=== PATIENT | female | born 1990 | race Hispanic/Latino ===

== ENCOUNTER 2016-05-24 22:07 | Emergency (ER) | payer OTHER ==
[2016-05-24] MEDS ORDERED: METOCLOPRAMIDE INJ 10MG/2ML VIAL (J2765) As Ordered ONE (23:37)
[2016-05-24] MEDS ORDERED: ACETAMINOPHEN 325 MG TAB As Ordered ONE (23:37)
[2016-05-24 23:56] LABS: BASO # 0.1 K/mm3 (0.0-0.2); BASO % 0.5 % (0.0-1.0); EOS # 0.1 K/mm3 (0.0-0.50); EOS % 0.7 % (0.0-3.0); LARGE UNSTAINED CELL # 0.1 K/mm3 (0.0-0.4); LARGE UNSTAINED CELL % 0.9 % (0.0-4.0); LYMPH # 1.6 K/mm3 (1.5-6.5); LYMPH % 9.2 % (24.0-44.0); MEAN CORPUSCULAR HGB CONC 34.5 g/dl (32.0-36.5); MONO # 0.6 K/mm3 (0.0-0.8); MONO % 3.9 % (0.0-5.0); NEUTROPHILS # 13.4 K/mm3 (1.8-7.7); NEUTROPHILS % 84.8 % (36.0-66.0); PLATELET COUNT, AUTOMATED 288 k/mm3 (150-450); RED CELL DISTRIBUTION WIDTH 13.7 % (11.5-14.5); WHITE BLOOD COUNT 15.8 K/mm3 (4.0-10.0)
[2016-05-25 00:13] LABS: ANION GAP 10 MEQ/L (8-16); BLOOD UREA NITROGEN 8 MG/DL (7-18); CALCIUM LEVEL 8.9 MG/DL (8.5-10.1); CARBON DIOXIDE LEVEL 25 MEQ/L (21-32); CHLORIDE LEVEL 106 MEQ/L (98-107); CREATININE FOR GFR 0.45 MG/DL (0.55-1.02); GLOMERULAR FILTRATION RATE > 60.0 (>60); GLUCOSE, FASTING 86 MG/DL (70-105); POTASSIUM SERUM 3.9 MEQ/L (3.5-5.1); SODIUM LEVEL 141 MEQ/L (136-145)
--- NOTE | 2016-05-25 00:20 | REPUSA ---
CLINICAL HISTORY: determination. TECHNIQUE: Transabdominal ultrasound of the pelvis was performed. FINDINGS: Single, live intrauterine gestation. The estimated gestation age is 9 weeks and 3 days based on a pole measurement of 2.6 cm. heart rate 180 beats per minute. No subchorionic hemorrhage is identified. No maternal adnexal abnorm ality is seen. IMPRESSION: Single, live intrauterine gestation. No abnormality seen.
--- NOTE | 2016-05-25 00:56 | EDDOCDS ---
Physician Documentation [facility] Name: Tawana Carbajal Age: 25 yrs Sex: Female : 1990 Arrival Date: 05/24/2016 Time: 22:07 Bed I5 / M5 Private MD: Prakash [facility] [place] Disposition: 05/25/16 00:45 Discharged to Home/Self Care. Impression: Acute upper respiratory infection, unspecified - VIRAL, Vomiting of , unspecified. - Condition is Stable. - Discharge Instructions: Hyperemesis Gravidarum, Upper Respiratory Infection, Adult. - Prescriptions for Reglan 10 mg Oral Tablet - take 1 tablet by ORAL route every 6 hours take 30 minutes before meals and at bedtime; 20 tablet. - Medication Reconciliation, Local Pharmacy Hours form. - Follow up: Norman Swain, OB; When: Tomorrow; Reason: Recheck today's complaints, Continuance of care. - Problem is new. - Symptoms have improved. - Notes: USE TYLENOL AND REGLAN INSTRUCTED, FOLLOW UP WITH YOUR DOCTOR TOMORROW, RETURN TO THE ER IF THE SYMPTOMS WORSEN OR BECOME CONCERNING Historical: - Allergies: Ibuprofen (Upset stomach); PENICILLINS (Vomit); - Home Meds: 1. Vitamin Oral tab 1 tab once daily - PMHx: GERD; bacterial vaginosis; - PSHx: Gall Bladder Removal; - Social history: Smoking status: Patient states was never smoker of tobacco. No barriers to communication noted, The patient speaks fluent Occitan. - Family history: Not pertinent. - : The pt / caregiver states he / she is not on anticoagulants. Home medication list is obtained from the patient. - Exposure Risk Screening:: None identified. 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 (154.94 cm); Pain 6/10; 05/25 00:49 BP 111 / 64 LA Sitting (auto/reg); Pulse 72 MON; Resp 20 S; Temp 99.1(T); Pulse Ox 99% cln on R/A; Pain 07/03; 05/24 22:09 Body Mass Index 30.04 (72.12 kg, 154.94 cm) elp MDM: 05/24 22:58 Financial registration complete. ks16 22:59 [facility] Payment Agreement was scanned into [employer] and attached to record. ks16 23:16 Strep Screen, Nursing ordered. ck7 23:16 Obtain sample by nasopharyngeal swab ordered. ck7 23:16 IV Saline Lock ordered. ck7 23:16 Metoclopramide 10 mg IV at 40 mg/hr once over 15 mins ordered. ck7 23:16 Acetaminophen Tablet 975 mg PO once ordered. ck7 23:16 NS 0.9% 1000 ml IV at bolus once ordered. ck7 23:18 US 1st trimester Ordered. EDMS 23:18 -Influenza A&B Rapid Antigen - Nose Ordered. EDMS 23:18 CBC with Diff Ordered. EDMS 23:18 MED Profile Ordered. EDMS 23:18 UA Ordered. EDMS 05/25 00:06 GATS (NEGATIVE STREP SCREEN) Ordered. EDMS 00:13 CBC with Diff Reviewed. ck7 00:13 UA Reviewed. ck7 00:25 MED Profile Reviewed. ck7 00:34 US 1st trimester Reviewed. ck7 00:38 -Influenza A&B Rapid Antigen - Nose Reviewed. ck7 00:40 Fluid Challenge ordered. ck7 Administered Medications: 05/24 23:45 Drug: Metoclopramide 10 mg [metoclopramide 5 mg/mL injection solution] Route: IV; Rate: jmb 40 mg/hr; Infused Over: 15 mins; Site: right antecubital; 23:45 Drug: Acetaminophen 975 mg [acetaminophen 325 mg tablet (3 tabs)] Route: PO; jmb 23:45 Drug: NS 0.9% 1000 ml [sodium chloride 0.9 % intravenous solution] Route: IV; Rate: jmb bolus; Site: right antecubital; Signatures: Dispatcher [employer] Anh Murphy RN RN rs3 Kwabena Casas, CHRISTOPHER-C RPA-Cck7 Eric Bae RN RN jmb Sorenson, Kimberly, Reg Reg ks16 The chart was reviewed and I authenticate all verbal orders and agree with the evaluation and treatment provided.Attachments: 22:59 [facility] Payment Agreement ks16 MTDD
--- NOTE | 2016-05-25 00:56 | EDDOCDS ---
Nurse's Notes [facility] Name: Tawana Carbajal Age: 25 yrs Sex: Female : 1990 Arrival Date: 05/24/2016 Time: 22:07 Bed I5 / M5 Private MD: JESSA Randall Diagnosis: Acute upper respiratory infection, unspecified-VIRAL;Vomiting of , unspecified Presentation: 05/24 22:11 Presenting complaint: Patient states: throat pain, headache, nasal congestion for a rs3 week. 9 weeks . nausea/vomiting present. Adult Sepsis Screening: The patient does not have new or worsening altered mentation. Patient's respiratory rate is less than 22. Systolic blood pressure is greater than 100. Patient has a qSOFA score of 0- Negative Sepsis Screen. Suicide/Homicide risk assessment- the patient denies having any suicidal and/or homicidal ideations and does not present with any other emotional, behavioral or mental health complaints. 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 Transition of care: patient was not received from another setting of care. 22:11 Acuity: INA Level 4 rs3 22:11 Method Of Arrival: Walkin/Carried/Asstd rs3 Triage Assessment: 22:13 General: Appears in no apparent distress. Pain: Location: forehead, right cheek and rs3 left cheek. HIV screening NA for this visit Offered previously. 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 Vitamin Oral tab 1 tab once daily - PMHx: GERD; bacterial vaginosis; - PSHx: Gall Bladder Removal; - Social history: Smoking status: Patient states was never smoker of tobacco. No barriers to communication noted, The patient speaks fluent Kazakh. - Family history: Not pertinent. - : The pt / caregiver states he / she is not on anticoagulants. Home medication list is obtained from the patient. - Exposure Risk Screening:: None identified. Screenin:44 Screening information is obtained from the patient. Fall risk: No risks identified. jmb Assistance ADL's: requires no assistance with activities of daily living. Abuse/DV Screen: The patient / caregiver reports he/she is: not in a situation that causes fear, pain or injury. Nutritional screening: No deficits noted. home support is adequate. 05/25 00:54 Advance Directives: Currently, there is no health care proxy. There is no active DNR jmb order. There is no living will. There is no Power of Manager Software. Assessment: 05/24 23:44 General: Appears in no apparent distress, Behavior is appropriate for age, cooperative. jmb Pain: Location: face and left cheek and right cheek and forehead Pain currently is 5 out of 10 on a pain scale. Neurological: Level of Consciousness is awake, alert, obeys commands, Oriented to person, place, time, Slip Maker are equal bilaterally Speech is normal, Facial symmetry appears normal, Facial symmetry: tongue is midline. Cardiovascular: Capillary refill < 3 seconds Heart tones present Pulses are all present. Rhythm is regular. Respiratory: No deficits noted. Airway is patent Respiratory effort is even, unlabored, Respiratory pattern is regular, symmetrical, Breath sounds are clear bilaterally. GI: Abdomen is non- distended Bowel sounds present X 4 quads. Abd is soft X 4 quads. Derm: Skin is pink, warm & dry. Musculoskeletal: Range of motion intact in all extremities. 05/25 00:45 General: Appears in no apparent distress, comfortable, Behavior is appropriate for age, jmb cooperative, Patient laying on stretcher, appears comfortable. Patient voices no complaints at this time. . Neurological: Level of Consciousness is awake, alert, obeys commands, Oriented to person, place, time. Respiratory: Airway is patent Respiratory effort is even, unlabored, Respiratory pattern is regular, symmetrical. 00:54 General: Patient instructed on discharge instructions. Patient asked if there were any jmb questions regarding discharge, patient stated no. IV discontinued per hospital policy. Patient signed discharge instructions. Patient discharged in stable condition. . Vital Signs: 05/24 22:09 BP 123 / 73; Pulse 83; Resp 18; Temp 97.6(O); Pulse Ox 99% on R/A; Weight 72.12 kg (M); elp Height 61 in. (154.94 cm); Pain 6/10; 05/25 00:49 BP 111 / 64 LA Sitting (auto/reg); Pulse 72 MON; Resp 20 S; Temp 99.1(T); Pulse Ox 99% cln on R/A; Pain 2/10; 05/24 22:09 Body Mass Index 30.04 (72.12 kg, 154.94 cm) elp Vitals: 05/24 22:09 Log In Time: May 24, 2016 at 22:07. elp 05/25 00:06 Strep Screen is obtained and tested: Negative, a GATSNEG culture is ordered in [facility] and sent. ED Course: 05/24 22:08 Patient visited by Erika Mar PCA. elp 22:08 Patient moved to Waiting elp 22:09 Prakash [facility] [place] is Private Physician. elp 22:10 Patient visited by Erika Mar PCA. elp 22:10 Patient moved to Pre RCE elp 22:12 Triage Initiated rs3 22:14 Patient moved to Triage 1 ms18 22:43 [facility] ck7 22:43 Zain Menendez DO is Attending Physician. ck7 22:43 Patient visited by Kwabena Casas RPA-C. ck7 22:59 [facility] Payment Agreement was scanned into [employer] and attached to record. ks16 23:15 Patient visited by Kwabena Casas RPA-C. ck7 23:21 Patient moved to I5 / M5 kmg1 23:39 UA Sent. cln 23:41 Patient moved to Ultrasound dmg 23:44 The patient / caregiver is instructed regarding the plan of care and ED course. jmb 23:44 Inserted saline lock: 20 gauge in right antecubital area and blood collected. The b patient tolerated the procedure well. Labs drawn. (by ED staff). Sent per order to lab. 23:45 MED Profile Sent. ka4 23:45 CBC with Diff Sent. ka4 23:45 Inserted saline lock: 20 gauge in right antecubital area and blood collected. The ka4 patient tolerated the procedure well. Labs drawn. (by ED staff). Sent per order to lab. Urine collected. Clean catch specimen. Urine specimen sent to lab. 23:46 Patient visited by Aline Chan LPN. ka4 23:46 Patient visited by Eric Bae RN. ita 05/25 00:05 -Influenza A&B Rapid Antigen - Nose Sent. cln 00:06 Patient moved to I5 / dm 00:09 GATS (NEGATIVE STREP SCREEN) Sent. ka4 00:24 Patient visited by Kwabena Casas RPA-C. ck7 00:26 US 1st trimester Returned. EDMS 00:44 [place], OB is Referral Physician. ck7 00:45 Patient visited by Eric Bae RN. jmb 00:50 Patient visited by Julieth Bermeo PCA. cln 00:54 Discontinued lock intact, bleeding controlled, pressure dressing applied, No jmb redness/swelling at site. No procedures done that require assistance. Administered Medications: 05/24 23:45 Drug: Metoclopramide 10 mg [metoclopramide 5 mg/mL injection solution] Route: IV; Rate: jmb 40 mg/hr; Infused Over: 15 mins; Site: right antecubital; 23:45 Drug: Acetaminophen 975 mg [acetaminophen 325 mg tablet (3 tabs)] Route: PO; jmb 23:45 Drug: NS 0.9% 1000 ml [sodium chloride 0.9 % intravenous solution] Route: IV; Rate: jmb bolus; Site: right antecubital; Order Results: Lab Order: -Influenza A&B Rapid Antigen - Nose; SPEC'M 05/24/16 23:48 Test: INFLUENZA A RAPID SCR by ICA; Value: INFLUENZA A RESULTS NEGATIVE; Status: F Test: INFLUENZA A RAPID SCR by ICA; Value: Comments:; Status: F Test: INFLUENZA B RAPID SCR by ICA; Value: INFLUENZA B RESULTS NEGATIVE; Status: F Test Note: ; The Influenza test is a direct rapid immunoassay for the qualitative detection of Influenza viral antigen. Cell culture (Viral Culture) testing should be considered to confirm NEGATIVE results and to assist in detecting other viruses that can provide similar clinical symptoms. Please contact the lab within 24 hours ([phone]) if confirmatory testing is desired. Lab Order: CBC with Diff; SPEC'M 05/24/16 23:43 Test: WHITE BLOOD COUNT; Value: 15.8; Range: 4.0-10.0; Abnormal: Above high normal; Units: K/mm3; Status: F Test: RED BLOOD COUNT; Value: 4.37; Range: 4.00-5.40; Units: M/mm3; Status: F Test: HEMOGLOBIN; Value: 13.1; Range: 12.0-16.0; Units: g/dl; Status: F Test: HEMATOCRIT; Value: 38.0; Range: 36.0-47.0; Units: %; Status: F Test: MEAN CORPUSCULAR VOLUME; Value: 87.0; Range: 80.0-96.0; Units: fl; Status: F Test: MEAN CORPUSCULAR HEMOGLOBIN; Value: 30.0; Range: 27.0-33.0; Units: pg; Status: F Test: MEAN CORPUSCULAR HGB CONC; Value: 34.5; Range: 32.0-36.5; Units: g/dl; Status: F Test: RED CELL DISTRIBUTION WIDTH; Value: 13.7; Range: 11.5-14.5; Units: %; Status: F Test: PLATELET COUNT, AUTOMATED; Value: 288; Range: 150-450; Units: k/mm3; Status: F Test: NEUTROPHILS %; Value: 84.8; Range: 36.0-66.0; Abnormal: Above high normal; Units: %; Status: F Test: LYMPH %; Value: 9.2; Range: 24.0-44.0; Abnormal: Below low normal; Units: %; Status: F Test: MONO %; Value: 3.9; Range: 0.0-5.0; Units: %; Status: F Test: EOS %; Value: 0.7; Range: 0.0-3.0; Units: %; Status: F Test: BASO %; Value: 0.5; Range: 0.0-1.0; Units: %; Status: F Test: LARGE UNSTAINED CELL %; Value: 0.9; Range: 0.0-4.0; Units: %; Status: F Test: NEUTROPHILS #; Value: 13.4; Range: 1.8-7.7; Abnormal: Above high normal; Units: K/mm3; Status: F Test: LYMPH #; Value: 1.6; Range: 1.5-6.5; Units: K/mm3; Status: F Test: MONO #; Value: 0.6; Range: 0.0-0.8; Units: K/mm3; Status: F Test: EOS #; Value: 0.1; Range: 0.0-0.50; Units: K/mm3; Status: F Test: BASO #; Value: 0.1; Range: 0.0-0.2; Units: K/mm3; Status: F Test: LARGE UNSTAINED CELL #; Value: 0.1; Range: 0.0-0.4; Units: K/mm3; Status: F Lab Order: MED Profile; SPEC'M 05/24/16 23:43 Test: GLUCOSE, FASTING; Value: 86; Range: 70-105; Units: MG/DL; Status: F Test: BLOOD UREA NITROGEN; Value: 8; Range: 7-18; Units: MG/DL; Status: F Test: CREATININE FOR GFR; Value: 0.45; Range: 0.55-1.02; Abnormal: Below low normal; Units: MG/DL; Status: F Test: GLOMERULAR FILTRATION RATE; Value: > 60.0; Range: >60; Status: F Test: SODIUM LEVEL; Value: 141; Range: 136-145; Units: MEQ/L; Status: F Test: POTASSIUM SERUM; Value: 3.9; Range: 3.5-5.1; Units: MEQ/L; Status: F Test: CHLORIDE LEVEL; Value: 106; Range: 98-107; Units: MEQ/L; Status: F Test: CARBON DIOXIDE LEVEL; Value: 25; Range: 21-32; Units: MEQ/L; Status: F Test: ANION GAP; Value: 10; Range: 8-16; Units: MEQ/L; Status: F Test: CALCIUM LEVEL; Value: 8.9; Range: 8.5-10.1; Units: MG/DL; Status: F Test Note: ; Units are mL/min/1.73 m2 Chronic Kidney Disease Staging per NKF: Stage I & II GFR >=60 Normal to Mildly Decreased Stage III GFR 30-59 Moderately Decreased Stage IV GFR 15-29 Severely Decreased Stage V GFR <15 Very Little GFR Left ESRD GFR <15 on SLOT FLOORPERSON Lab Order: UA; SPEC'M 05/24/16 23:36 Test: APPEARANCE, URINE; Value: HAZY; Range: CLEAR; Status: F Test: COLOR, URINE; Value: YELLOW; Range: YELLOW; Status: F Test: PH,URINE; Value: 5.0; Range: 5.0-9.0; Units: UNITS; Status: F Test: SPECIFIC GRAVITY URINE AUTO; Value: 1.021; Range: 1.002-1.035; Status: F Test: PROTEIN, URINE AUTO; Value: NEGATIVE; Range: NEGATIVE; Units: mg/dL; Status: F Test: GLUCOSE, URINE (UA) AUTO; Value: NEGATIVE; Range: NEGATIVE; Units: mg/dL; Status: F Test: KETONE, URINE AUTO; Value: NEGATIVE; Range: NEGATIVE; Units: mg/dL; Status: F Test: UROBILINOGEN, URINE AUTO; Value: 0.2; Range: 0.0-2.0; Units: mg/dL; Status: F Test: BILIRUBIN, URINE AUTO; Value: NEGATIVE; Range: NEGATIVE; Status: F Test: NITRITE, URINE AUTO; Value: NEGATIVE; Range: NEGATIVE; Status: F Test: LEUKOCYTE ESTERASE, URINE AUTO; Value: NEGATIVE; Range: NEGATIVE; Status: F Test: BLOOD, URINE BLOOD; Value: 1+; Range: NEGATIVE; Abnormal: Above high normal; Status: F Test: WBC, URINE AUTO; Value: 1; Range: 0-3; Units: /HPF; Status: F Test: RBC, URINE AUTO; Value: 1; Range: 0-3; Units: /HPF; Status: F Test: BACTERIA, URINE AUTO; Value: NEGATIVE; Range: NEGATIVE; Status: F Test: SQUAMOUS EPITHELIAL CELL UR AU; Value: 1; Range: 0-6; Units: /HPF; Status: F Test: MUCUS, URINE; Value: SMALL; Range: NEGATIVE; Status: F Test: HYALINE CAST, URINE AUTO; Value: 0; Range: 0-1; Units: /LPF; Status: F Radiology Order: US 1st trimester Test: US 1st trimester REASON FOR EXAMINATION: R/O DEMISE; ; CLINICAL HISTORY: determination.; TECHNIQUE: Transabdominal ultrasound of the pelvis was performed.; FINDINGS:; Single, live intrauterine gestation.; The estimated gestation age is 9 weeks and 3 days based on a pole measurement of 2.6 cm. ; heart rate 180 beats per minute. No subchorionic hemorrhage is identified. No maternal adnexal abnorm; ality is seen.; IMPRESSION:; Single, live intrauterine gestation.; No abnormality seen.; ; Outcome: 05/25 00:45 Discharge ordered by Provider. ck7 00:54 Discharge Assessment: Patient awake, alert and oriented x 3. No cognitive and/or jmb functional deficits noted. Patient verbalized understanding of disposition instructions. Patient awake and alert. obeys commands, Oriented to person, place and time. Patient verbalized understanding of disposition instructions. Patient has no functional deficits. patient administered narcotics - no. The following High Risk Discharge criteria are identified: None. Discharged to home ambulatory. Condition: stable. Discharge instructions given to patient, Instructed on discharge instructions, follow up and referral plans. medication usage, Demonstrated understanding of instructions, medications, Pt was receptive of discharge instructions/ teaching. Prescriptions given X 1. Ultrasound Study completed. Property sent home with patient. 00:56 Patient left the ED. ita Signatures: Dispatcher [employer] EDMS Lilli Martins, RN RN kmg1 Carmen Conway Rosemary,RN RN rs3 Kwabena Casas, RPA-C RPA-Cck7 Erika Mar, COMPUTATIONAL PHYSICIST COMPUTATIONAL PHYSICIST radhap Eric Bae,RN RN Aline Michelle,PROJECT MANAGER SENIOR PROJECT MANAGER SENIOR ka4 Breann Longoria,RN RN ms18 Tara Mansfield, Reg Reg ks16 Julieth Bermeo, COMPUTATIONAL PHYSICIST COMPUTATIONAL PHYSICIST cln MTDD
--- NOTE | 2016-05-27 01:56 | EDDOCDS ---
[facility]
--- NOTE | 2016-05-27 02:01 | EDDOCDS ---
Physician Documentation [facility] Name: Tawana Carbajal Age: 25 yrs Sex: Female : 1990 Arrival Date: 05/24/2016 Time: 22:07 Bed I5 / M5 Private MD: Prak[place] [facility] [place]: 05/25/16 00:45 Discharged to Home/Self Care. Impression: Acute upper respiratory infection, unspecified - VIRAL, Vomiting of , unspecified. - Condition is Stable. - Discharge Instructions: Hyperemesis Gravidarum, Upper Respiratory Infection, Adult. - Prescriptions for Reglan 10 mg Oral Tablet - take 1 tablet by ORAL route every 6 hours take 30 minutes before meals and at bedtime; 20 tablet. - Medication Reconciliation, Local Pharmacy Hours form. - Follow up: Norman Swain, OB; When: Tomorrow; Reason: Recheck today's complaints, Continuance of care. - Problem is new. - Symptoms have improved. - Notes: USE TYLENOL AND REGLAN INSTRUCTED, FOLLOW UP WITH YOUR DOCTOR TOMORROW, RETURN TO THE ER IF THE SYMPTOMS WORSEN OR BECOME CONCERNING Historical: - Allergies: Ibuprofen (Upset stomach); PENICILLINS (Vomit); - Home Meds: 1. Vitamin Oral tab 1 tab once daily - PMHx: GERD; bacterial vaginosis; - PSHx: Gall Bladder Removal; - Social history: Smoking status: Patient states was never smoker of tobacco. No barriers to communication noted, The patient speaks fluent Welsh. - Family history: Not pertinent. - : The pt / caregiver states he / she is not on anticoagulants. Home medication list is obtained from the patient. - Exposure Risk Screening:: None identified. 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 (154.94 cm); Pain 6/10; 05/25 00:49 BP 111 / 64 LA Sitting (auto/reg); Pulse 72 MON; Resp 20 S; Temp 99.1(T); Pulse Ox 99% cln on R/A; Pain 07/03; 05/24 22:09 Body Mass Index 30.04 (72.12 kg, 154.94 cm) elp MDM: 05/24 22:58 Financial registration complete. ks16 22:59 [facility] Payment Agreement was scanned into [employer] and attached to record. ks16 23:16 Strep Screen, Nursing ordered. ck7 23:16 Obtain sample by nasopharyngeal swab ordered. ck7 23:16 IV Saline Lock ordered. ck7 23:16 Metoclopramide 10 mg IV at 40 mg/hr once over 15 mins ordered. ck7 23:16 Acetaminophen Tablet 975 mg PO once ordered. ck7 23:16 NS 0.9% 1000 ml IV at bolus once ordered. ck7 23:18 US 1st trimester Ordered. EDMS 23:18 -Influenza A&B Rapid Antigen - Nose Ordered. EDMS 23:18 CBC with Diff Ordered. EDMS 23:18 MED Profile Ordered. EDMS 23:18 UA Ordered. EDMS 05/25 00:06 GATS (NEGATIVE STREP SCREEN) Ordered. EDMS 00:13 CBC with Diff Reviewed. ck7 00:13 UA Reviewed. ck7 00:25 MED Profile Reviewed. ck7 00:34 US 1st trimester Reviewed. ck7 00:38 -Influenza A&B Rapid Antigen - Nose Reviewed. ck7 00:40 Fluid Challenge ordered. ck7 04:58 [facility] Payment Agreement was scanned into [employer] and attached to record. hs2 05:02 T-Sheet-- Draft Copy was scanned into [employer] and attached to record. hs2 Administered Medications: 05/24 23:45 Drug: Metoclopramide 10 mg [metoclopramide 5 mg/mL injection solution] Route: IV; Rate: jmb 40 mg/hr; Infused Over: 15 mins; Site: right antecubital; 23:45 Drug: Acetaminophen 975 mg [acetaminophen 325 mg tablet (3 tabs)] Route: PO; jmb 23:45 Drug: NS 0.9% 1000 ml [sodium chloride 0.9 % intravenous solution] Route: IV; Rate: jmb bolus; Site: right antecubital; Signatures: Dispatcher [employer] EDMS Anh Snow RN RN rs3 Kwabena Casas, RPA-C RPA-Cck7 Eric Bae,RN RN Tara Hall, Reg Reg ks16 Cidny Waldron, Reg Reg hs2 The chart was reviewed and I authenticate all verbal orders and agree with the evaluation and treatment provided.Attachments: 22:59 [facility] Payment Agreement ks16 05:02 T-Sheet-- Draft Copy hs2 Chart Complete MTDD
--- NOTE | 2016-05-27 02:01 | EDDOCDS ---
Nurse's Notes [facility] Name: Tawana Carbajal Age: 25 yrs Sex: Female : 1990 Arrival Date: 05/24/2016 Time: 22:07 Bed I5 / M5 Private MD: JESSA Randall Diagnosis: Acute upper respiratory infection, unspecified-VIRAL;Vomiting of , unspecified Presentation: 05/24 22:11 Presenting complaint: Patient states: throat pain, headache, nasal congestion for a rs3 week. 9 weeks . nausea/vomiting present. Adult Sepsis Screening: The patient does not have new or worsening altered mentation. Patient's respiratory rate is less than 22. Systolic blood pressure is greater than 100. Patient has a qSOFA score of 0- Negative Sepsis Screen. Suicide/Homicide risk assessment- the patient denies having any suicidal and/or homicidal ideations and does not present with any other emotional, behavioral or mental health complaints. 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 Transition of care: patient was not received from another setting of care. 22:11 Acuity: INA Level 4 rs3 22:11 Method Of Arrival: Walkin/Carried/Asstd rs3 Triage Assessment: 22:13 General: Appears in no apparent distress. Pain: Location: forehead, right cheek and rs3 left cheek. HIV screening NA for this visit Offered previously. 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 Vitamin Oral tab 1 tab once daily - PMHx: GERD; bacterial vaginosis; - PSHx: Gall Bladder Removal; - Social history: Smoking status: Patient states was never smoker of tobacco. No barriers to communication noted, The patient speaks fluent Pashto. - Family history: Not pertinent. - : The pt / caregiver states he / she is not on anticoagulants. Home medication list is obtained from the patient. - Exposure Risk Screening:: None identified. Screenin:44 Screening information is obtained from the patient. Fall risk: No risks identified. jmb Assistance ADL's: requires no assistance with activities of daily living. Abuse/DV Screen: The patient / caregiver reports he/she is: not in a situation that causes fear, pain or injury. Nutritional screening: No deficits noted. home support is adequate. 05/25 00:54 Advance Directives: Currently, there is no health care proxy. There is no active DNR jmb order. There is no living will. 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 Assessment: 05/24 23:44 General: Appears in no apparent distress, Behavior is appropriate for age, cooperative. jmb Pain: Location: face and left cheek and right cheek and forehead Pain currently is 5 out of 10 on a pain scale. Neurological: Level of Consciousness is awake, alert, obeys commands, Oriented to person, place, time, Diabetologist are equal bilaterally Speech is normal, Facial symmetry appears normal, Facial symmetry: tongue is midline. Cardiovascular: Capillary refill < 3 seconds Heart tones present Pulses are all present. Rhythm is regular. Respiratory: No deficits noted. Airway is patent Respiratory effort is even, unlabored, Respiratory pattern is regular, symmetrical, Breath sounds are clear bilaterally. GI: Abdomen is non- distended Bowel sounds present X 4 quads. Abd is soft X 4 quads. Derm: Skin is pink, warm & dry. Musculoskeletal: Range of motion intact in all extremities. 05/25 00:45 General: Appears in no apparent distress, comfortable, Behavior is appropriate for age, jmb cooperative, Patient laying on stretcher, appears comfortable. Patient voices no complaints at this time. . Neurological: Level of Consciousness is awake, alert, obeys commands, Oriented to person, place, time. Respiratory: Airway is patent Respiratory effort is even, unlabored, Respiratory pattern is regular, symmetrical. 00:54 General: Patient instructed on discharge instructions. Patient asked if there were any jmb questions regarding discharge, patient stated no. IV discontinued per hospital policy. Patient signed discharge instructions. Patient discharged in stable condition. . Vital Signs: 05/24 22:09 BP 123 / 73; Pulse 83; Resp 18; Temp 97.6(O); Pulse Ox 99% on R/A; Weight 72.12 kg (M); elp Height 61 in. (154.94 cm); Pain 6/10; 05/25 00:49 BP 111 / 64 LA Sitting (auto/reg); Pulse 72 MON; Resp 20 S; Temp 99.1(T); Pulse Ox 99% cln on R/A; Pain 2/10; 05/24 22:09 Body Mass Index 30.04 (72.12 kg, 154.94 cm) elp Vitals: 05/24 22:09 Log In Time: May 24, 2016 at 22:07. elp 05/25 00:06 Strep Screen is obtained and tested: Negative, a GATSNEG culture is ordered in [facility] and sent. ED Course: 05/24 22:08 Patient visited by Erika Mar PCA. elp 22:08 Patient moved to Waiting elp 22:09 Prakash [facility] is Private Physician. elp 22:10 Patient visited by Eriak Mar PCA. elp 22:10 Patient moved to Pre RCE elp 22:12 Triage Initiated rs3 22:14 Patient moved to Triage 1 ms18 22:43 Kwabena Casas RPA-C is [facility]. ck7 22:43 Zain Menendez DO is Attending Physician. ck7 22:43 Patient visited by Kwabena Casas RPA-C. ck7 22:59 [facility] Payment Agreement was scanned into [email or web address] and attached to record. ks16 23:15 Patient visited by Kwabena Casas RPA-C. ck7 23:21 Patient moved to I5 / M5 kmg1 23:39 UA Sent. cln 23:41 Patient moved to Ultrasound dmg 23:44 The patient / caregiver is instructed regarding the plan of care and ED course. jmb 23:44 Inserted saline lock: 20 gauge in right antecubital area and blood collected. The b patient tolerated the procedure well. Labs drawn. (by ED staff). Sent per order to lab. 23:45 MED Profile Sent. ka4 23:45 CBC with Diff Sent. ka4 23:45 Inserted saline lock: 20 gauge in right antecubital area and blood collected. The ka4 patient tolerated the procedure well. Labs drawn. (by ED staff). Sent per order to lab. Urine collected. Clean catch specimen. Urine specimen sent to lab. 23:46 Patient visited by Aline Chan LPN. ka4 23:46 Patient visited by Eric Bae RN. ita 05/25 00:05 -Influenza A&B Rapid Antigen - Nose Sent. cln 00:06 Patient moved to I5 / dm 00:09 GATS (NEGATIVE STREP SCREEN) Sent. ka4 00:24 Patient visited by Kwabena Casas RPA-C. ck7 00:26 US 1st trimester Returned. EDMS 00:44 [place], OB is Referral Physician. ck7 00:45 Patient visited by Eric Bae RN. jmb 00:50 Patient visited by Julieth Bermeo PCA. cln 00:54 Discontinued lock intact, bleeding controlled, pressure dressing applied, No jmb redness/swelling at site. No procedures done that require assistance. 04:58 [facility] Payment Agreement was scanned into [email or web address] and attached to record. hs2 05:02 T-Sheet-- Draft Copy was scanned into [email or web address] and attached to record. hs2 Administered Medications: 05/24 23:45 Drug: Metoclopramide 10 mg [metoclopramide 5 mg/mL injection solution] Route: IV; Rate: jmb 40 mg/hr; Infused Over: 15 mins; Site: right antecubital; 23:45 Drug: Acetaminophen 975 mg [acetaminophen 325 mg tablet (3 tabs)] Route: PO; jmb 23:45 Drug: NS 0.9% 1000 ml [sodium chloride 0.9 % intravenous solution] Route: IV; Rate: jmb bolus; Site: right antecubital; Order Results: Lab Order: -Influenza A&B Rapid Antigen - Nose; SPEC'M 05/24/16 23:48 Test: INFLUENZA A RAPID SCR by ICA; Value: INFLUENZA A RESULTS NEGATIVE; Status: F Test: INFLUENZA A RAPID SCR by ICA; Value: Comments:; Status: F Test: INFLUENZA B RAPID SCR by ICA; Value: INFLUENZA B RESULTS NEGATIVE; Status: F Test Note: ; The Influenza test is a direct rapid immunoassay for the qualitative detection of Influenza viral antigen. Cell culture (Viral Culture) testing should be considered to confirm NEGATIVE results and to assist in detecting other viruses that can provide similar clinical symptoms. Please contact the lab within 24 hours ([phone]) if confirmatory testing is desired. Lab Order: CBC with Diff; SPEC'M 05/24/16 23:43 Test: WHITE BLOOD COUNT; Value: 15.8; Range: 4.0-10.0; Abnormal: Above high normal; Units: K/mm3; Status: F Test: RED BLOOD COUNT; Value: 4.37; Range: 4.00-5.40; Units: M/mm3; Status: F Test: HEMOGLOBIN; Value: 13.1; Range: 12.0-16.0; Units: g/dl; Status: F Test: HEMATOCRIT; Value: 38.0; Range: 36.0-47.0; Units: %; Status: F Test: MEAN CORPUSCULAR VOLUME; Value: 87.0; Range: 80.0-96.0; Units: fl; Status: F Test: MEAN CORPUSCULAR HEMOGLOBIN; Value: 30.0; Range: 27.0-33.0; Units: pg; Status: F Test: MEAN CORPUSCULAR HGB CONC; Value: 34.5; Range: 32.0-36.5; Units: g/dl; Status: F Test: RED CELL DISTRIBUTION WIDTH; Value: 13.7; Range: 11.5-14.5; Units: %; Status: F Test: PLATELET COUNT, AUTOMATED; Value: 288; Range: 150-450; Units: k/mm3; Status: F Test: NEUTROPHILS %; Value: 84.8; Range: 36.0-66.0; Abnormal: Above high normal; Units: %; Status: F Test: LYMPH %; Value: 9.2; Range: 24.0-44.0; Abnormal: Below low normal; Units: %; Status: F Test: MONO %; Value: 3.9; Range: 0.0-5.0; Units: %; Status: F Test: EOS %; Value: 0.7; Range: 0.0-3.0; Units: %; Status: F Test: BASO %; Value: 0.5; Range: 0.0-1.0; Units: %; Status: F Test: LARGE UNSTAINED CELL %; Value: 0.9; Range: 0.0-4.0; Units: %; Status: F Test: NEUTROPHILS #; Value: 13.4; Range: 1.8-7.7; Abnormal: Above high normal; Units: K/mm3; Status: F Test: LYMPH #; Value: 1.6; Range: 1.5-6.5; Units: K/mm3; Status: F Test: MONO #; Value: 0.6; Range: 0.0-0.8; Units: K/mm3; Status: F Test: EOS #; Value: 0.1; Range: 0.0-0.50; Units: K/mm3; Status: F Test: BASO #; Value: 0.1; Range: 0.0-0.2; Units: K/mm3; Status: F Test: LARGE UNSTAINED CELL #; Value: 0.1; Range: 0.0-0.4; Units: K/mm3; Status: F Lab Order: MED Profile; SPEC'M 05/24/16 23:43 Test: GLUCOSE, FASTING; Value: 86; Range: 70-105; Units: MG/DL; Status: F Test: BLOOD UREA NITROGEN; Value: 8; Range: 7-18; Units: MG/DL; Status: F Test: CREATININE FOR GFR; Value: 0.45; Range: 0.55-1.02; Abnormal: Below low normal; Units: MG/DL; Status: F Test: GLOMERULAR FILTRATION RATE; Value: > 60.0; Range: >60; Status: F Test: SODIUM LEVEL; Value: 141; Range: 136-145; Units: MEQ/L; Status: F Test: POTASSIUM SERUM; Value: 3.9; Range: 3.5-5.1; Units: MEQ/L; Status: F Test: CHLORIDE LEVEL; Value: 106; Range: 98-107; Units: MEQ/L; Status: F Test: CARBON DIOXIDE LEVEL; Value: 25; Range: 21-32; Units: MEQ/L; Status: F Test: ANION GAP; Value: 10; Range: 8-16; Units: MEQ/L; Status: F Test: CALCIUM LEVEL; Value: 8.9; Range: 8.5-10.1; Units: MG/DL; Status: F Test Note: ; Units are mL/min/1.73 m2 Chronic Kidney Disease Staging per NKF: Stage I & II GFR >=60 Normal to Mildly Decreased Stage III GFR 30-59 Moderately Decreased Stage IV GFR 15-29 Severely Decreased Stage V GFR <15 Very Little GFR Left ESRD GFR <15 on BANKRUPTCY ATTORNEY Lab Order: UA; SPEC'M 05/24/16 23:36 Test: APPEARANCE, URINE; Value: HAZY; Range: CLEAR; Status: F Test: COLOR, URINE; Value: YELLOW; Range: YELLOW; Status: F Test: PH,URINE; Value: 5.0; Range: 5.0-9.0; Units: UNITS; Status: F Test: SPECIFIC GRAVITY URINE AUTO; Value: 1.021; Range: 1.002-1.035; Status: F Test: PROTEIN, URINE AUTO; Value: NEGATIVE; Range: NEGATIVE; Units: mg/dL; Status: F Test: GLUCOSE, URINE (UA) AUTO; Value: NEGATIVE; Range: NEGATIVE; Units: mg/dL; Status: F Test: KETONE, URINE AUTO; Value: NEGATIVE; Range: NEGATIVE; Units: mg/dL; Status: F Test: UROBILINOGEN, URINE AUTO; Value: 0.2; Range: 0.0-2.0; Units: mg/dL; Status: F Test: BILIRUBIN, URINE AUTO; Value: NEGATIVE; Range: NEGATIVE; Status: F Test: NITRITE, URINE AUTO; Value: NEGATIVE; Range: NEGATIVE; Status: F Test: LEUKOCYTE ESTERASE, URINE AUTO; Value: NEGATIVE; Range: NEGATIVE; Status: F Test: BLOOD, URINE BLOOD; Value: 1+; Range: NEGATIVE; Abnormal: Above high normal; Status: F Test: WBC, URINE AUTO; Value: 1; Range: 0-3; Units: /HPF; Status: F Test: RBC, URINE AUTO; Value: 1; Range: 0-3; Units: /HPF; Status: F Test: BACTERIA, URINE AUTO; Value: NEGATIVE; Range: NEGATIVE; Status: F Test: SQUAMOUS EPITHELIAL CELL UR AU; Value: 1; Range: 0-6; Units: /HPF; Status: F Test: MUCUS, URINE; Value: SMALL; Range: NEGATIVE; Status: F Test: HYALINE CAST, URINE AUTO; Value: 0; Range: 0-1; Units: /LPF; Status: F Lab Order: GATS (NEGATIVE STREP SCREEN); SPEC'M 05/24/16 23:43 Test: GATS CULTURE (NEG STREP SCR); Value: GATS RESULT NEGATIVE FOR STREP PYOGENES (GROUP A); Status: F Radiology Order: US 1st trimester Test: US 1st trimester REASON FOR EXAMINATION: R/O DEMISE; ; CLINICAL HISTORY: determination.; TECHNIQUE: Transabdominal ultrasound of the pelvis was performed.; FINDINGS:; Single, live intrauterine gestation.; The estimated gestation age is 9 weeks and 3 days based on a pole measurement of 2.6 cm. ; heart rate 180 beats per minute. No subchorionic hemorrhage is identified. No maternal adnexal abnorm; ality is seen.; IMPRESSION:; Single, live intrauterine gestation.; No abnormality seen.; ; Outcome: 05/25 00:45 Discharge ordered by Provider. ck7 00:54 Discharge Assessment: Patient awake, alert and oriented x 3. No cognitive and/or jmb functional deficits noted. Patient verbalized understanding of disposition instructions. Patient awake and alert. obeys commands, Oriented to person, place and time. Patient verbalized understanding of disposition instructions. Patient has no functional deficits. patient administered narcotics - no. The following High Risk Discharge criteria are identified: None. Discharged to home ambulatory. Condition: stable. Discharge instructions given to patient, Instructed on discharge instructions, follow up and referral plans. medication usage, Demonstrated understanding of instructions, medications, Pt was receptive of discharge instructions/ teaching. Prescriptions given X 1. Ultrasound Study completed. Property sent home with patient. 00:56 Patient left the ED. ita Signatures: Dispatcher [employer] EDMS Lilli Martins, RN RN kmg1 Carmen Conway RosemaryRN RN rs3 Kwabena Casas, RPA-C RPA-Cck7 Erika Mar, SECTION LEADER SCREEN PRINTING SECTION LEADER SCREEN PRINTING Eric WatersRN RN Aline Michelle LPN LPN ka4 Breann Longoria RN RN ms18 Tara Mansfield, Reg Reg ks16 Cindy Waldron, Reg Reg hs2 Julieth Bermeo, SECTION LEADER SCREEN PRINTING SECTION LEADER SCREEN PRINTING cln Chart Complete MTDD
--- NOTE | 2016-05-27 02:01 | EDDOCDS ---
Physician Documentation [facility] Name: Tawana Carbajal Age: 25 yrs Sex: Female : 1990 Arrival Date: 05/24/2016 Time: 22:07 Bed I5 / M5 Private MD: Prakash [facility] Disposition: 05/25/16 00:45 Discharged to Home/Self Care. Impression: Acute upper respiratory infection, unspecified - VIRAL, Vomiting of , unspecified. - Condition is Stable. - Discharge Instructions: Hyperemesis Gravidarum, Upper Respiratory Infection, Adult. - Prescriptions for Reglan 10 mg Oral Tablet - take 1 tablet by ORAL route every 6 hours take 30 minutes before meals and at bedtime; 20 tablet. - Medication Reconciliation, Local Pharmacy Hours form. - Follow up: Norman Swain, OB; When: Tomorrow; Reason: Recheck today's complaints, Continuance of care. - Problem is new. - Symptoms have improved. - Notes: USE TYLENOL AND REGLAN INSTRUCTED, FOLLOW UP WITH YOUR DOCTOR TOMORROW, RETURN TO THE ER IF THE SYMPTOMS WORSEN OR BECOME CONCERNING Historical: - Allergies: Ibuprofen (Upset stomach); PENICILLINS (Vomit); - Home Meds: 1. Vitamin Oral tab 1 tab once daily - PMHx: GERD; bacterial vaginosis; - PSHx: Gall Bladder Removal; - Social history: Smoking status: Patient states was never smoker of tobacco. No barriers to communication noted, The patient speaks fluent Arabic. - Family history: Not pertinent. - : The pt / caregiver states he / she is not on anticoagulants. Home medication list is obtained from the patient. - Exposure Risk Screening:: None identified. 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 (154.94 cm); Pain 6/10; 05/25 00:49 BP 111 / 64 LA Sitting (auto/reg); Pulse 72 MON; Resp 20 S; Temp 99.1(T); Pulse Ox 99% cln on R/A; Pain 07/03; 05/24 22:09 Body Mass Index 30.04 (72.12 kg, 154.94 cm) elp MDM: 05/24 22:58 Financial registration complete. ks16 22:59 [facility] Payment Agreement was scanned into [employer] and attached to record. ks16 23:16 Strep Screen, Nursing ordered. ck7 23:16 Obtain sample by nasopharyngeal swab ordered. ck7 23:16 IV Saline Lock ordered. ck7 23:16 Metoclopramide 10 mg IV at 40 mg/hr once over 15 mins ordered. ck7 23:16 Acetaminophen Tablet 975 mg PO once ordered. ck7 23:16 NS 0.9% 1000 ml IV at bolus once ordered. ck7 23:18 US 1st trimester Ordered. EDMS 23:18 -Influenza A&B Rapid Antigen - Nose Ordered. EDMS 23:18 CBC with Diff Ordered. EDMS 23:18 MED Profile Ordered. EDMS 23:18 UA Ordered. EDMS 05/25 00:06 GATS (NEGATIVE STREP SCREEN) Ordered. EDMS 00:13 CBC with Diff Reviewed. ck7 00:13 UA Reviewed. ck7 00:25 MED Profile Reviewed. ck7 00:34 US 1st trimester Reviewed. ck7 00:38 -Influenza A&B Rapid Antigen - Nose Reviewed. ck7 00:40 Fluid Challenge ordered. ck7 04:58 [facility] Payment Agreement was scanned into [employer] and attached to record. hs2 05:02 T-Sheet-- Draft Copy was scanned into [employer] and attached to record. hs2 Administered Medications: 05/24 23:45 Drug: Metoclopramide 10 mg [metoclopramide 5 mg/mL injection solution] Route: IV; Rate: jmb 40 mg/hr; Infused Over: 15 mins; Site: right antecubital; 23:45 Drug: Acetaminophen 975 mg [acetaminophen 325 mg tablet (3 tabs)] Route: PO; jmb 23:45 Drug: NS 0.9% 1000 ml [sodium chloride 0.9 % intravenous solution] Route: IV; Rate: jmb bolus; Site: right antecubital; Signatures: Dispatcher [employer] EDMS Anh Snow RN RN rs3 Kwabena Casas, RPA-C RPA-Cck7 Eric Bae,RN RN Tara Hall, Reg Reg ks16 Cindy Waldron, Reg Reg hs2 The chart was reviewed and I authenticate all verbal orders and agree with the evaluation and treatment provided.Attachments: 22:59 [facility] Payment Agreement ks16 05:02 T-Sheet-- Draft Copy hs2 Chart Complete MTDD
== END 2016-05-25 00:56 | disposition home or self-care (01) ==
LOC: M ED 22:07
DX: O21.0 Mild hyperemesis gravidarum (principal); O99.511 Diseases of the respiratory system complicating pregnancy, first trimester; Z3A.09 9 weeks gestation of pregnancy; O99.611 Diseases of the digestive system complicating pregnancy, first trimester; Z79.899 Other long term (current) drug therapy; Z88.6 Allergy status to analgesic agent; Z88.0 Allergy status to penicillin
CPT/HCPCS: 36415; 76801; 80048; 81001; 85025; 87804; 87880; 96374; 99284; J2765

== ENCOUNTER 2016-06-20 09:14 | Emergency (ER) | payer OTHER ==
--- NOTE | 2016-06-20 10:01 | EDDOCDS ---
Physician Documentation [facility] Name: Tawana Carbajal Age: 25 yrs Sex: Female : 1990 Arrival Date: 06/20/2016 Time: 09:14 Bed Triage 3 Private MD: Prakash [facility] [place] Disposition: 06/20/16 09:47 Discharged to Home/Self Care. Impression: Strain of muscle and tendon of back wall of thorax, Strain of muscle, fascia and tendon at neck level. - Condition is Stable. - Discharge Instructions: Muscle Strain. - Prescriptions for Cyclobenzaprine 5 mg Oral Tablet - take 1 tablet by ORAL route at bedtime As needed; 15 tablet. - Medication Reconciliation, Local Pharmacy Hours, Work Release Form - 2 day form. - Follow up: Emergency Department; When: As needed; Reason: Worsening of conditions. Follow up: Private Physician; When: 2 - 3 days; Reason: Wound/Symptom Recheck, Recheck today's complaints, Continuance of care. - Problem is new. - Symptoms are unchanged. Historical: - Allergies: Ibuprofen (Upset stomach); PENICILLINS (Vomit); - Home Meds: 1. Vitamin Oral tab 1 tab once daily 2. Tylenol 325 mg Oral tab 2 tabs (Last dose: 06/20/2016 07:30) - PMHx: GERD; - PSHx: Gall Bladder Removal; - Social history: Smoking status: Patient states was never smoker of tobacco. No barriers to communication noted, The patient speaks fluent Faroese. - : The pt / caregiver states he / she is not on anticoagulants. Home medication list is obtained from the patient. - Exposure Risk Screening:: None identified. 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 (154.94 cm); Pain 7/10; 09:17 Body Mass Index 29.29 (70.31 kg, 154.94 cm) elp MDM: 09:34 Urine Dip ordered. dt4 09:35 Urine Culture Ordered. EDMS 09:48 Financial registration complete. mm15 Point of Care Testing: Urine Dip: 09:45 pH: 6; ; Specific [place]: 1.02; Ketones: Negative; Glucose: Negative; Protein: Trace; jjr Leukocytes: Trace; Nitrite: Negative ; Blood: Negative; Bilirubin: Negative ; Urobilinogen: Normal Ranges: Signatures: Dispatcher [employer] [facility] Wanda Guan RN RN jjr McGrath, Marlynn mm15 Pauline Perez PA-C PA-C dt4 MTDD
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
--- NOTE | 2016-06-22 11:02 | EDDOCDS ---
Physician Documentation [facility] Name: Tawana Carbajal Age: 25 yrs Sex: Female : 1990 Arrival Date: 06/20/2016 Time: 09:14 Bed Triage 3 Private MD: Prakash [facility] [place]position: 06/20/16 09:47 Discharged to Home/Self Care. Impression: Strain of muscle and tendon of back wall of thorax, Strain of muscle, fascia and tendon at neck level. - Condition is Stable. - Discharge Instructions: Muscle Strain. - Prescriptions for Cyclobenzaprine 5 mg Oral Tablet - take 1 tablet by ORAL route at bedtime As needed; 15 tablet. - Medication Reconciliation, Local Pharmacy Hours, Work Release Form - 2 day form. - Follow up: Emergency Department; When: As needed; Reason: Worsening of conditions. Follow up: Private Physician; When: 2 - 3 days; Reason: Wound/Symptom Recheck, Recheck today's complaints, Continuance of care. - Problem is new. - Symptoms are unchanged. Historical: - Allergies: Ibuprofen (Upset stomach); PENICILLINS (Vomit); - Home Meds: 1. Vitamin Oral tab 1 tab once daily 2. Tylenol 325 mg Oral tab 2 tabs (Last dose: 06/20/2016 07:30) - PMHx: GERD; - PSHx: Gall Bladder Removal; - Social history: Smoking status: Patient states was never smoker of tobacco. No barriers to communication noted, The patient speaks fluent Mozambican. - : The pt / caregiver states he / she is not on anticoagulants. Home medication list is obtained from the patient. - Exposure Risk Screening:: None identified. 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 (154.94 cm); Pain 7/10; 09:17 Body Mass Index 29.29 (70.31 kg, 154.94 cm) elp MDM: 09:34 Urine Dip ordered. dt4 09:35 Urine Culture Ordered. EDMS 09:48 Financial registration complete. mm15 10:03 [facility] Payment Agreement was scanned into [employer] and attached to record. mm15 11:10 T-Sheet-- Draft Copy was scanned into [employer] and attached to record. gb Point of Care Testing: Urine Dip: 09:45 pH: 6; ; Specific [place]: 1.02; Ketones: Negative; Glucose: Negative; Protein: Trace; jjr Leukocytes: Trace; Nitrite: Negative ; Blood: Negative; Bilirubin: Negative ; Urobilinogen: Normal Ranges: Signatures: Dispatcher [employer] EDKY Trisha Scott, Reg Reg gb Wanda Guan RN RN Emma Garza mm15 Pauline Perez PA-C PA-C dt4 The chart was reviewed and I authenticate all verbal orders and agree with the evaluation and treatment provided.Attachments: 10:03 [facility] Payment Agreement mm15 11:10 T-Sheet-- Draft Copy gb Chart Complete MTDD
--- NOTE | 2016-06-22 11:02 | EDDOCDS ---
Physician Documentation [facility] Name: Tawana Carbajal Age: 25 yrs Sex: Female : 1990 Arrival Date: 06/20/2016 Time: 09:14 Bed Triage 3 Private MD: Prakash [facility] [place]position: 06/20/16 09:47 Discharged to Home/Self Care. Impression: Strain of muscle and tendon of back wall of thorax, Strain of muscle, fascia and tendon at neck level. - Condition is Stable. - Discharge Instructions: Muscle Strain. - Prescriptions for Cyclobenzaprine 5 mg Oral Tablet - take 1 tablet by ORAL route at bedtime As needed; 15 tablet. - Medication Reconciliation, Local Pharmacy Hours, Work Release Form - 2 day form. - Follow up: Emergency Department; When: As needed; Reason: Worsening of conditions. Follow up: Private Physician; When: 2 - 3 days; Reason: Wound/Symptom Recheck, Recheck today's complaints, Continuance of care. - Problem is new. - Symptoms are unchanged. Historical: - Allergies: Ibuprofen (Upset stomach); PENICILLINS (Vomit); - Home Meds: 1. Vitamin Oral tab 1 tab once daily 2. Tylenol 325 mg Oral tab 2 tabs (Last dose: 06/20/2016 07:30) - PMHx: GERD; - PSHx: Gall Bladder Removal; - Social history: Smoking status: Patient states was never smoker of tobacco. No barriers to communication noted, The patient speaks fluent [place]. - : The pt / caregiver states he / she is not on anticoagulants. Home medication list is obtained from the patient. - Exposure Risk Screening:: None identified. 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 (154.94 cm); Pain 7/10; 09:17 Body Mass Index 29.29 (70.31 kg, 154.94 cm) elp MDM: 09:34 Urine Dip ordered. dt4 09:35 Urine Culture Ordered. EDMS 09:48 Financial registration complete. mm15 10:03 [facility] Payment Agreement was scanned into [employer] and attached to record. mm15 11:10 T-Sheet-- Draft Copy was scanned into [employer] and attached to record. gb Point of Care Testing: Urine Dip: 09:45 pH: 6; ; Specific [place]: 1.02; Ketones: Negative; Glucose: Negative; Protein: Trace; jjr Leukocytes: Trace; Nitrite: Negative ; Blood: Negative; Bilirubin: Negative ; Urobilinogen: Normal Ranges: Signatures: Dispatcher [employer] EDNV Trisha Scott, Reg Reg gb Wanda Guan RN RN Emma Garza mm15 Pauline Perez PA-C PA-C dt4 The chart was reviewed and I authenticate all verbal orders and agree with the evaluation and treatment provided.Attachments: 10:03 [facility] Payment Agreement mm15 11:10 T-Sheet-- Draft Copy gb Chart Complete MTDD
--- NOTE | 2016-06-22 11:02 | EDDOCDS ---
Nurse's Notes [facility] Name: Tawana Carbajal Age: 25 yrs Sex: Female : 1990 Arrival Date: 06/20/2016 Time: 09:14 Bed Triage 3 Private MD: JESSA Randall Diagnosis: Strain of muscle and tendon of back wall of thorax;Strain of muscle, fascia and tendon at neck level Presentation: 06/20 09:17 Presenting complaint: Patient states: neck pain radiating down spine for past 5 days, jjr no injury, pt is approx 13 weeks . Acute neurological deficits are not present. Mechanism of Injury: No Mechanism of Injury. Adult Sepsis Screening: The patient does not have new or worsening altered mentation. Patient's respiratory rate is less than 22. Systolic blood pressure is greater than 100. Patient has a qSOFA score of 0- Negative Sepsis Screen. Suicide/Homicide risk assessment- the patient denies having any suicidal and/or homicidal ideations and does not present with any other emotional, behavioral or mental health complaints. 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 Transition of care: patient was not received from another setting of care. 09:17 Acuity: INA Level 4 jjr 09:17 Method Of Arrival: Walkin/Carried/Asstd jjr Triage Assessment: 09:19 General: Appears in no apparent distress. Pain: Location: back of neck, thoracic area, jjr lumbar area and sacrum. HIV screening NA for this visit Offered previously. : Denies cramping vaginal bleeding. Musculoskeletal: Reports pain in back of neck, thoracic area, lumbar area and sacrum. 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 Vitamin Oral tab 1 tab once daily 2. Tylenol 325 mg Oral tab 2 tabs (Last dose: 06/20/2016 07:30) - PMHx: GERD; - PSHx: Gall Bladder Removal; - Social history: Smoking status: Patient states was never smoker of tobacco. No barriers to communication noted, The patient speaks fluent Frisian. - : The pt / caregiver states he / she is not on anticoagulants. Home medication list is obtained from the patient. - Exposure Risk Screening:: None identified. Screenin:00 Screening information is obtained from the patient. Fall risk: No risks identified. jjr Assistance ADL's: requires no assistance with activities of daily living. Abuse/DV Screen: The patient / caregiver reports he/she is: not in a situation that causes fear, pain or injury. Nutritional screening: No deficits noted. Advance Directives: There is no active DNR order. home support is adequate. Assessment: 09:59 General: Appears in no apparent distress, well nourished, well groomed, Behavior is jjr appropriate for age. Derm: No deficits noted. Musculoskeletal: Reports pain in left hip, right hip, back of neck, thoracic area, lumbar area and sacrum. Vital Signs: 09:17 BP 128 / 69; Pulse 76; Resp 16; Temp 96.2; Pulse Ox 100% ; Weight 70.31 kg; Height 61 elp in. (154.94 cm); Pain 7/10; 09:17 Body Mass Index 29.29 (70.31 kg, 154.94 cm) elp Vitals: 09:17 Log In Time: June 20, 2016 at 09:10. elp ED Course: 09:15 Patient visited by Erika Mar PCA. elp 09:15 Patient moved to Waiting elp 09:16 Prakash [facility] [place] is Private Physician. elp 09:17 Patient visited by Erika Mar PCA. elp 09:17 Patient moved to Pre RCE elp 09:17 Patient moved to Triage 3 hs1 09:18 Triage Initiated jjr 09:20 Pauline Perez PA-C is PHCP. dt4 09:20 Ashly Christiansen MD is Attending Physician. dt4 09:20 Patient visited by Pauline Perez PA-C. dt4 09:45 Urine Culture Sent. jjr 09:59 The patient / caregiver is instructed regarding the plan of care and ED course. jjr 10:00 No IV's were initiated during this patient's visit. No procedures done that require jjr assistance. 10:03 [facility] Payment Agreement was scanned into [employer] and attached to record. mm15 11:10 T-Sheet-- Draft Copy was scanned into [employer] and attached to record. Point of Care Testing: Urine Dip: 09:45 pH: 6; ; Specific [place]: 1.02; Ketones: Negative; Glucose: Negative; Protein: Trace; jjr Leukocytes: Trace; Nitrite: Negative ; Blood: Negative; Bilirubin: Negative ; Urobilinogen: Normal Ranges: Order Results: Lab Order: Urine Culture; SPEC'M 06/20/16 09:38 Test: URINE CULTURE; Value: <EXTERNAL COMMENT eCWMed> FULL REPORT IN LAB NOTES (eCW and Medent).; Status: F Test: URINE CULTURE; Value: URINE CULTURE RESULT NO GROWTH CLINICAL SIGNIFICANCE 1 ORGANISM; Status: F Outcome: 09:47 Discharge ordered by Provider. dt4 10:00 Discharge Assessment: patient administered narcotics - no. The following High Risk jjr Discharge criteria are identified: None. Discharged to home ambulatory. Condition: stable. Discharge instructions given to patient, Instructed on discharge instructions, follow up and referral plans. medication usage, Demonstrated understanding of instructions, medications, Prescriptions given X 1, Work note provided to patient. No special radiology studies were completed. Property sent home with patient. 10:01 Patient left the ED. jjr Signatures: Trisha Scott, Reg Reg gb Wanda Guan RN RN jjr Ludy Valentine RN RN hs1 Emma Whatley mm15 Erika Mar, CURING OVEN TENDER CURING OVEN TENDER elp Pauline Perez, PA-C PA-C dt4 Corrections: (The following items were deleted from the chart) 09:19 09:17 Presenting complaint: Patient states: neck pain radiating down spine for past 5 jjr days, no injury jjr Chart Complete MTDD
== END 2016-06-20 10:01 | disposition home or self-care (01) ==
LOC: M ED 09:14
DX: S16.1XXA Strain of muscle, fascia and tendon at neck level, initial encounter (principal); S29.012A Strain of muscle and tendon of back wall of thorax, initial encounter; X58.XXXA Exposure to other specified factors, initial encounter; Y92.89 Other specified places as the place of occurrence of the external cause; Y93.89 Activity, other specified; Y99.1 Military activity; K21.9 Gastro-esophageal reflux disease without esophagitis; Z90.49 Acquired absence of other specified parts of digestive tract; Z79.899 Other long term (current) drug therapy; Z88.0 Allergy status to penicillin; Z88.6 Allergy status to analgesic agent

== ENCOUNTER 2016-07-27 14:58 | Emergency (ER) | payer OTHER ==
[~2016-07-27] VITALS: Ht 152.4 cm; Wt 77.1 kg
[2016-07-27] MEDS ORDERED: MACR100C3 PO (15:31)
[2016-07-27] MEDS ORDERED: NS 1,000 ML IV ONE (18:00)
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
[2016-07-27 20:58] VITALS: BP 144/80
[2016-07-28] MEDS ORDERED: PRENATAL VITAMIN (09:00)
== END 2016-07-27 21:00 | disposition home or self-care (01) ==
LOC: M ED 18:08
DX: O26.892 Other specified pregnancy related conditions, second trimester (principal); V43.62XA Car passenger injured in collision with other type car in traffic accident, initial encounter; Y92.410 Unspecified street and highway as the place of occurrence of the external cause; Y93.9 Activity, unspecified; Y99.9 Unspecified external cause status; O99.612 Diseases of the digestive system complicating pregnancy, second trimester; Z3A.18 18 weeks gestation of pregnancy; Z79.899 Other long term (current) drug therapy; Z88.6 Allergy status to analgesic agent; Z88.0 Allergy status to penicillin

== ENCOUNTER 2016-07-28 08:35 | Emergency (ER) | payer OTHER ==
[~2016-07-28] VITALS: Ht 154.9 cm; Wt 79.4 kg
[~2016-07-28 08:35] MED LIST: MACR100C3 PO
[2016-07-28] MEDS ORDERED: PRENATAL VITAMIN (09:00)
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
[2016-07-28 10:09] VITALS: BP 104/72
== END 2016-07-28 10:13 | disposition home or self-care (01) ==
LOC: M ED 10:03
DX: O9A.212 Injury, poisoning and certain other consequences of external causes complicating pregnancy, second trimester (principal); S16.1XXA Strain of muscle, fascia and tendon at neck level, initial encounter; S60.221A Contusion of right hand, initial encounter; Z3A.18 18 weeks gestation of pregnancy; V49.40XA Driver injured in collision with unspecified motor vehicles in traffic accident, initial encounter; Y92.410 Unspecified street and highway as the place of occurrence of the external cause; Y93.89 Activity, other specified; Y99.9 Unspecified external cause status

== ENCOUNTER 2016-08-20 00:42 | Outpatient (CLI) | payer OTHER ==
[~2016-08-20] VITALS: Ht 154.9 cm; Wt 79.0 kg
[~2016-08-20 00:42] MED LIST changes: +PRENATAL VITAMIN
[2016-08-20 01:05] VITALS: BP 103/59
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
== END 2016-08-20 01:52 | disposition home or self-care (01) ==
LOC: M LDO 00:42
PROVIDERS: ATTEND Obstetrics & Gynecology
DX: O26.892 Other specified pregnancy related conditions, second trimester (principal); Z3A.22 22 weeks gestation of pregnancy

== ENCOUNTER 2016-08-23 23:09 | Outpatient (CLI) | payer OTHER ==
[~2016-08-23] VITALS: Ht 154.9 cm; Wt 81.0 kg
[2016-08-23 23:22] VITALS: BP 107/64
--- NOTE | 2016-08-23 23:59 | IPNPDOC ---
Text Note Date of Service The patient was seen on 08/23/16. NOTE Subjective: Tawana is a 25yo with a lowry IUP at approx 22wk who presents to triage for abdominal cramping. She was seen here previously for similar complaint 2 nights ago and was determined to have no evidence of labor. She states, similar to the other night, that the pain started earlier in the day but has not gotten better. She states she laid down tonight and couldn't sleep because the cramping did not resolve. She describes the pain as across her lower abdomen. She does endorse having intercourse this morning with her . ROS: Admits: Gross movement, good oral hydration Denies: Vaginal bleeding/discharge/loss of fluid, fever, N/V, dysuria, urinary urgency, flank pain, vaginal itching or pain Objective: Vitals wnl, afebrile Positive Doptones 150's Peculiar: NO ctx or uterine irritability. Physical Exam: General: WDWN gravid female in NAD Mental : AAOx3 Abdominal: Gravid abdomen without guarding or tenderness. Extremity: no edema in LE bilat. (SCE chaperoned by RN): closed/thick/high Assessment: Tawana is a 25yo with a lowry IUP at approx 22wk without evidence of labor. This is second presentation within two days for similar complaint. No clinical evidence of infection. Vitals stable without abnormalities on exam. SCE closed/thick/high with no ctx or uterine irritability on toco. Plan: -Reassurance provided that any cramping patient might feel is not correlated with labor given that she has had no cervical change whatsoever -discharged to home. - labor precautions discussed with patient .-f/u at next scheduled OB appt in 2 weeks -Tylenol 325mg 2 tabs po q6h prn pain -encouraged adequate hydration -Return precautions given for bleeding, fluid loss, contractions, loss of movement, fever, and worsening or spreading of abdominal pain. -medrec reviewed MD Norman Madrid KATRINA D. MD Aug 23, 2016 23:59
== END 2016-08-23 23:55 | disposition home or self-care (01) ==
LOC: M LDO 23:09
PROVIDERS: ATTEND Obstetrics & Gynecology
DX: O26.892 Other specified pregnancy related conditions, second trimester (principal); Z3A.22 22 weeks gestation of pregnancy

== ENCOUNTER 2016-09-07 17:58 | Outpatient (CLI) | payer OTHER ==
[~2016-09-07] VITALS: Ht 154.9 cm; Wt 80.0 kg
[2016-09-07 18:26] VITALS: BP 123/65
[2016-09-07 18:36] VITALS: BP 115/57
== END 2016-09-07 19:05 | disposition home or self-care (01) ==
LOC: M LDO 17:58
PROVIDERS: ATTEND Student in an Organized Health Care Education/Training Program
DX: O26.892 Other specified pregnancy related conditions, second trimester (principal); R10.9 Unspecified abdominal pain; Z3A.23 23 weeks gestation of pregnancy

== ENCOUNTER 2016-11-27 13:49 | Outpatient (CLI) | payer OTHER ==
[~2016-11-27] VITALS: Ht 154.9 cm; Wt 93.0 kg
[~2016-11-27 13:49] MED LIST changes: -MACR100C3 PO; +MACR100C43 PO
== END 2016-11-27 16:07 | disposition home or self-care (01) ==
LOC: M LDO 13:49
PROVIDERS: ATTEND Student in an Organized Health Care Education/Training Program
DX: O26.893 Other specified pregnancy related conditions, third trimester (principal); R10.30 Lower abdominal pain, unspecified; O99.89 Other specified diseases and conditions complicating pregnancy, childbirth and the puerperium; M25.571 Pain in right ankle and joints of right foot; O99.343 Other mental disorders complicating pregnancy, third trimester; F33.9 Major depressive disorder, recurrent, unspecified; Z3A.35 35 weeks gestation of pregnancy

== ENCOUNTER 2016-12-16 11:42 | Outpatient (CLI) | payer OTHER ==
[~2016-12-16] VITALS: Ht 154.9 cm; Wt 98.0 kg
[2016-12-16 12:21] VITALS: BP 119/71
[2016-12-16 14:15] VITALS: BP 93/52
== END 2016-12-16 14:58 | disposition home or self-care (01) ==
LOC: M LDO 11:42
PROVIDERS: ATTEND Obstetrics & Gynecology
DX: O47.1 False labor at or after 37 completed weeks of gestation (principal); Z3A.38 38 weeks gestation of pregnancy

== ENCOUNTER 2016-12-18 10:07 | Outpatient (CLI) | payer OTHER ==
[~2016-12-18] VITALS: Ht 154.9 cm; Wt 96.0 kg
[2016-12-18] MEDS ORDERED: ACETAMINOPHEN 500 MG TAB PO PRN (10:45)
[2016-12-18 10:46] VITALS: BP 109/57
[2016-12-18 11:38] VITALS: BP 119/68
[2016-12-18 13:26] VITALS: BP 139/75
== END 2016-12-18 14:21 | disposition home or self-care (01) ==
LOC: M LDO 10:07
PROVIDERS: ATTEND Student in an Organized Health Care Education/Training Program
DX: O47.1 False labor at or after 37 completed weeks of gestation (principal); Z3A.38 38 weeks gestation of pregnancy; O99.343 Other mental disorders complicating pregnancy, third trimester; Z88.8 Allergy status to other drugs, medicaments and biological substances; Z88.0 Allergy status to penicillin

== ENCOUNTER 2016-12-19 10:05 | Inpatient (IN) | payer OTHER ==
[~2016-12-19] VITALS: Ht 154.9 cm; Wt 95.0 kg
[2016-12-19] VITALS (26 sets, daily range): BP systolic 85–185; BP diastolic 43–111
--- NOTE | 2016-12-19 12:02 | REP ---
BIOPHYSICAL PROFILE: Multiple sonographic images of the gravid uterus show a single living intrauterine gestation in the cephalic presentation. Doppler interrogation of the heart shows a heart rate of 157 beats per minute. The placenta is anterior and not low lying. The subjective amniotic fluid volume is within normal limits. The calculated amniotic fluid index is 7.5 with an expected range of 7.2 to 22.7. Doppler interrogation of the umbilical artery shows an A/B ratio of 3.00. This is slightly elevated with the upper limit of normal being 2.60. Biophysical profile score is 2 for breathing, 2 for movement, 2 for tone and 2 for amniotic fluid volume giving a sum total of 8 out of 8. BPD 8.7 cm = 35 weeks 0 days HC 32.1 cm = 36 weeks 2 days AC 35.3 cm = 39 weeks 1 day FL 7.1 cm = 36 weeks 1 day The estimated weight is 3271 grams, which is at the 42nd percentile for a 60-mlel-1-day gestational age. IMPRESSION: Single living intrauterine gestation as described above with an estimated gestational age of 37 weeks 1 day via composite criteria and an estimated date of delivery of 01/08/2017 by today's exam. Signed by Javon Aguirre DO 12/19/2016 12:07 P
[2016-12-19] MEDS ORDERED: LR 1,000 ML IV ONE (14:15)
[2016-12-19] MEDS ORDERED: LR 1,000 ML IV SCH ×2 (14:15→23:30)
[2016-12-19] MEDS ORDERED: PROMETHAZINE INJ 25 MG/ML VIAL (J2550) IV ONE (14:15)
[2016-12-19] MEDS ORDERED: BUTORPHANOL 2 MG/ML INJ (J0595) IV ONE (14:15)
[2016-12-19] MEDS: CLINDAMYCIN 900 MG in APPROPRIATE DILUENT 1 EA IV SCH (16:37)
[2016-12-19 17:17] LABS: MEAN CORPUSCULAR HEMOGLOBIN 30.9 pg (27.0-33.0); MEAN CORPUSCULAR HGB CONC 34.9 g/dl (32.0-36.5); MEAN CORPUSCULAR VOLUME 88.5 fl (80.0-96.0); RED CELL DISTRIBUTION WIDTH 13.2 % (11.5-14.5); WHITE BLOOD COUNT 12.2 K/mm3 (4.0-10.0)
[2016-12-19] MEDS ORDERED: OXYTOCIN 30 UNITS IN 0.9% NaCl 500ML IV BAG (J2590) As Ordered ONE (18:59)
[2016-12-19] MEDS ORDERED: FENTANYL 2MCG/ML ROPIVACAINE 0.2% IN 0.9% NACL 200ML IVBAG As Ordered ONE (19:00)
[2016-12-19] MEDS ORDERED: BICITRA 30ML SOLN UDC As Ordered ONE (22:37)
[2016-12-19] MEDS ORDERED: LACTATED RINGER'S 1000 ML IV STA (22:38)
[2016-12-19] MEDS: LR 1,000 ML IV SCH (22:38)
[2016-12-19] MEDS ORDERED: AZITHROMYCIN INJ 500MG VIAL (J0456) As Ordered ONE (22:39)
[2016-12-19] MEDS ORDERED: BUPIVACAINE HCL 0.25% 10 ML VIAL As Ordered ONE (22:40)
[2016-12-19] MEDS ORDERED: BICITRA 30ML SOLN UDC PO ONE (22:45)
[2016-12-19] MEDS ORDERED: CLINDAMYCIN 900 MG in APPROPRIATE DILUENT 1 EA IV ONE (22:45)
[2016-12-19] MEDS ORDERED: AZITHROMYCIN INJ 500 MG, VIAL MATE ADAPTER 1 EACH in D5W 250 ML IV ONE (22:45)
[2016-12-19] MEDS ORDERED: BUPIVACAINE HCL 0.25% 10 ML VIAL SC ONE (22:45)
[2016-12-19] MEDS ORDERED: ACETAMINOPHEN 650 MG SUPP PR ONE (22:45)
[2016-12-19] MEDS ORDERED: ACETAMINOPHEN 650 MG SUPP As Ordered ONE (22:46)
[2016-12-19] MEDS ORDERED: ONDANSETRON 4MG/2ML VIAL (J2405) As Ordered ONE (23:14)
[2016-12-19] MEDS ORDERED: OXYTOCIN INJ 10 UNITS/ML VIAL (J2590) As Ordered ONE ×2 (23:14→23:44)
[2016-12-19] MEDS ORDERED: KETOROLAC 60 MG/2 ML VIAL (J1885) As Ordered ONE (23:15)
[2016-12-19] MEDS ORDERED: METOCLOPRAMIDE INJ 10MG/2ML VIAL (J2765) IV PRN (23:30)
[2016-12-19] MEDS ORDERED: MEPERIDINE INJ 25 MG/ML VIAL (J2175) IV PRN (23:30)
[2016-12-19] MEDS ORDERED: fentaNYL 100 MCG/2 ML INJECTION (J3010) IV PRN (23:30)
[2016-12-19] MEDS ORDERED: ONDANSETRON 4MG/2ML VIAL (J2405) IV PRN (23:30)
[2016-12-19] MEDS ORDERED: PERCOCET 5MG/325MG TAB PO PRN (23:30)
[2016-12-19] MEDS ORDERED: MORPHINE PRES-FREE INJ 10 MG/10 ML VIAL (J2274) As Ordered ONE (23:36)
[2016-12-19] MEDS ORDERED: PHENYLephrine HCL 500 MCG/5 ML (100MCG/ML) SYRINGE (J2370) As Ordered ONE (23:44)
[2016-12-19 23:59] LABS: CORD GAS HCO3 V 18.5 MEQ/L; CORD GAS O2 SAT V 47.2 %; CORD GAS PCO2 V 45.4 mmHg; CORD GAS PH V 7.228 UNITS; CORD GAS PO2 V 22.9 mmHg; CORD GAS SBC V 16.3 MEQ/L; CORD GAS TCO2 V 19.9 MEQ/L
[2016-12-20] VITALS (9 sets, daily range): BP systolic 110–129; BP diastolic 57–72
[2016-12-20 00:03] LABS: CORD GAS ABE A -6.8; CORD GAS O2 SAT A 44.9 %; CORD GAS PCO2 A 50.2 mmHg; CORD GAS PH A 7.24 UNITS; CORD GAS PO2 A 20.9 mmHg; CORD GAS SBC A 17.8 MEQ/L; CORD GAS TCO2 A 22.6 MEQ/L
[2016-12-20] MEDS ORDERED: ONDANSETRON 4MG/2ML VIAL (J2405) IV PRN ×2 (00:15→23:30)
[2016-12-20] MEDS ORDERED: EPIDURAL COMMENT XX SCH (00:15)
[2016-12-20] MEDS ORDERED: NALOXONE INJ 0.4 MG/1 ML VIAL (J2310) IV PRN (00:15)
[2016-12-20] MEDS ORDERED: ePHEDrine SULFATE 25 MG/5 ML(5MG/ML) SYRINGE IV PRN (00:15)
[2016-12-20] MEDS ORDERED: REFRIGERATOR IV KEYS XX PRN (00:15)
[2016-12-20] MEDS ORDERED: LACTATED RINGER'S 1000 ML IV PRN (00:15)
[2016-12-20] MEDS ORDERED: EPIDURAL/PCA KEYS XX PRN (00:15)
[2016-12-20] MEDS ORDERED: diphenhydrAMINE INJ 50MG/ML VIAL (J1200) IV PRN (00:15)
[2016-12-20] MEDS ORDERED: FENTANYL/ROPIVACAINE/NACL BAG 200 ML EPIDURAL SCH (00:15)
[2016-12-20] MEDS: CLINDAMYCIN 900 MG in APPROPRIATE DILUENT 1 EA IV SCH (00:30)
[2016-12-20] MEDS ORDERED: PERCOCET 5MG/325MG TAB PO PRN ×2 (00:45→23:30)
[2016-12-20] MEDS ORDERED: MOM 30ML SUSPENSION UDC PO PRN (00:45)
[2016-12-20] MEDS ORDERED: DOCUSATE SODIUM 100 MG CAP PO PRN (00:45)
[2016-12-20] MEDS ORDERED: MEASLES,MUMPS,RUBELLA VACCINE INJ (MMR-II) (90707) SC SCH (00:45)
[2016-12-20] MEDS ORDERED: ANUSOL HC CREAM 30GM TOP PRN (00:45)
[2016-12-20] MEDS ORDERED: METHYLERGONOVINE MALEATE 0.2 MG TAB PO PRN (00:45)
[2016-12-20] MEDS ORDERED: RHOGAM 300 MCG (1500 IU) INJ (J2790) IM SCH (00:45)
[2016-12-20] MEDS ORDERED: fentaNYL 100 MCG/2 ML INJECTION (J3010) As Ordered ONE (00:59)
[2016-12-20 06:33] LABS: MEAN CORPUSCULAR HEMOGLOBIN 31.6 pg (27.0-33.0); MEAN CORPUSCULAR HGB CONC 35.2 g/dl (32.0-36.5); MEAN CORPUSCULAR VOLUME 89.8 fl (80.0-96.0); RED CELL DISTRIBUTION WIDTH 13.5 % (11.5-14.5); WHITE BLOOD COUNT 11.6 K/mm3 (4.0-10.0)
[2016-12-20] MEDS: LR 1,000 ML IV SCH ×3 (06:38→22:38)
[2016-12-20] MEDS: PRENATAL VITAMINS CHEWABLE TABLET PO SCH (12:51)
[2016-12-20] MEDS: PERCOCET 5MG/325MG TAB PO PRN ×3 (12:52→20:56)
--- NOTE | 2016-12-20 15:28 | RO ---
DATE OF PROCEDURE: 12/20/2016 PREOPERATIVE DIAGNOSIS: Nonreassuring heart strip, persistent occiput posterior, failure to dilate. POSTOPERATIVE DIAGNOSIS: Nonreassuring heart strip, failure to dilate, persistent occiput posterior. PROCEDURE: SURGEON: Dr. Andrew Diaz CARE CLINICIAN: Director [facility] ANESTHESIA: Epidural plus local anesthetic for intraperitoneal procedures. ESTIMATED BLOOD LOSS: 400 mL. DESCRIPTION OF PROCEDURE: Adequate anesthesia, prepped and draped in the supine position, Juárez catheter, bladder draining clear urine. Sequentials on board. Time-out performed. Antibiotics preoperatively appropriately. A small Pfannenstiel incision was made two fingerbreadths above the symphysis pubis, passing through the abdominal layers, securing hemostasis. Opening peritoneal cavity, bladder reflected well down, anterior low transverse into the uterus. Minimal amount of fluid was seen. We delivered a live female infant weighing 8 pounds 9 ounces, 3882 grams, scores of 9 and 9 at one and five minutes respectively. Arterial and venous pH were performed. Placenta was manually removed. Three-vessel cord, membranes and tissues intact. Uterus contracted well under Pitocin. The lower segment was oversewn in the usual fashion in two layers, reperitonealization was performed. With instrument and pad count correct, the abdomen was closed - running stitch for the peritoneum, same for the fascia, interrupted for subcutaneous, irrigation performed and subcuticular stitch to the skin, Marcaine 0.25%, 10 mL and spray was applied, and the patient was sent to recovery in good condition. Copy To: Norman Swain OB
[2016-12-20] MEDS ORDERED: MORPHINE 2 MG/ML 1ML SYRINGE IV ONE (23:15)
[2016-12-20] MEDS ORDERED: fentaNYL 100 MCG/2 ML INJECTION (J3010) IV PRN (23:30)
[2016-12-20] MEDS ORDERED: LR 1,000 ML IV SCH (23:30)
[2016-12-20] MEDS ORDERED: MEPERIDINE INJ 25 MG/ML VIAL (J2175) IV PRN (23:30)
[2016-12-20] MEDS ORDERED: METOCLOPRAMIDE INJ 10MG/2ML VIAL (J2765) IV PRN (23:30)
[2016-12-21] MEDS: PERCOCET 5MG/325MG TAB PO PRN ×3 (01:21→09:47)
[2016-12-21 05:45] VITALS: BP 114/66
[2016-12-21] MEDS: LR 1,000 ML IV SCH ×2 (05:59→09:17)
[2016-12-21] MEDS: PRENATAL VITAMINS CHEWABLE TABLET PO SCH (08:26)
[2016-12-21] MEDS ORDERED: OXYC1TAB23 PO (10:17)
--- NOTE | 2016-12-22 05:59 | DSES ---
DATE OF ADMISSION: 12/19/2016 DATE OF DISCHARGE: 12/21/2016 HISTORY: The patient is a 26-year-old 1, para 1 now, status post a primary low transverse (C) section per verbal report for non-reassuring heart rate tracing. Verbal report uncomplicated. Doing well overall. Has met all discharge criteria and has been discharged. Vital signs stable, afebrile. Last complete blood count (CBC) with hemoglobin and hematocrit (H and H) of 10.3 and 29.2, respectively. Precautions: Routine post C section precautions. Medications previously prescribed by Dr. Diaz. Followup: Two weeks for incision check or sooner as needed. routine followup in six weeks. Contraception: Do not recommend intercourse until six-week followup and followup at that time. Diet: As tolerated. Activity: Routine precautions.
== END 2016-12-21 10:40 | disposition home or self-care (01) | DRG 766 ==
LOC: M LDO 10:05 → M LDI 15:08 → M OBS 12-20 02:00
PROVIDERS: ADMIT Obstetrics & Gynecology; ATTEND Obstetrics & Gynecology
PROC: 10D00Z1 Extraction of Products of Conception, Low, Open Approach (ICD-10-PCS; principal; 2016-12-20)
DX: O62.0 Primary inadequate contractions (principal); O76 Abnormality in fetal heart rate and rhythm complicating labor and delivery; Z3A.38 38 weeks gestation of pregnancy; O99.824 Streptococcus B carrier state complicating childbirth; O32.8XX0 Maternal care for other malpresentation of fetus, not applicable or unspecified; Z37.0 Single live birth

== ENCOUNTER 2017-05-03 07:38 | Emergency (ER) | payer OTHER ==
[~2017-05-03] VITALS: Ht 154.9 cm; Wt 82.7 kg
[~2017-05-03 07:38] MED LIST changes: +OXYC1TAB23 PO
[2017-05-03] MEDS ORDERED: TYLE500T78 PO (07:52)
[2017-05-03] MEDS ORDERED: PSEUDOEPHEDRINE 30 MG TAB PO ONE (08:45)
[2017-05-03] MEDS ORDERED: ACETAMINOPHEN 325 MG TAB PO ONE (08:45)
[2017-05-03] MEDS ORDERED: KETOROLAC 60 MG/2 ML VIAL (J1885) IM ONE (08:45)
[2017-05-03 10:19] VITALS: BP 114/69
[2017-05-03] MEDS ORDERED: PSEU60TA PO (10:27)
== END 2017-05-03 10:36 | disposition home or self-care (01) ==
LOC: M ED 07:38
DX: J06.9 Acute upper respiratory infection, unspecified (principal)
CPT/HCPCS: 87804; 96372; 99283; J1885